=== PATIENT | male | born 1955 | race Caucasian/White ===

== ENCOUNTER 2019-10-23 09:43 | Day surgery (SDC) | payer MEDICARE, MEDICAID ==
[~2019-10-23] VITALS: Ht 170.2 cm; Wt 86.8 kg
[2019-10-23] VITALS (13 sets, daily range): BP systolic 128–155; BP diastolic 75–96
[~2019-10-23 09:43] MED LIST: APIX5TAB3 PO; ASPI-611 PO; ATOR20TA66 PO; ATOR40TA PO; ETHA25TA2 PO; NITR0.4T48 SL; SACU1TAB4 PO
[2019-10-23] MEDS ORDERED: diphenhydrAMINE 25mg capsule PO PRN (10:00)
[2019-10-23] MEDS ORDERED: normal saline 1,000 ML IV SCH ×2 (10:00→14:20)
[2019-10-23] MEDS ORDERED: nitroGLYCERIN 0.4mg SUBLingual tab SL PRN (10:00)
[2019-10-23] MEDS ORDERED: LORazepam 0.5 MG tablet PO PRN (10:00)
[2019-10-23 10:35] LABS: BASOPHILS # (AUTO) 0.1 X10'3 (0-0.2); EOSINOPHILS # (AUTO) 0.3 X10'3 (0-0.9); EOSINOPHILS % (AUTO) 4.6 % (0-6); HEMOGLOBIN 16.2 g/dl (14.0-17.9); LYMPHOCYTES # (AUTO) 1.7 X10'3 (1.1-4.8); LYMPHOCYTES % (AUTO) 26.1 % (21-51); MEAN CORPUSCULAR HEMOGLOBIN 30.1 PG (27.0-31.0); MEAN CORPUSCULAR HGB CONC 33.8 g/dL (33.0-36.5); MEAN CORPUSCULAR VOLUME 89.1 FL (78-98); MEAN PLATELET VOLUME 9.7 FL (7.4-10.4); MONOCYTES # (AUTO) 0.5 X10'3 (0-0.9); MONOCYTES % (AUTO) 7.1 % (2-12); NEUTROPHILS % (AUTO) 61.2 % (42-75); PLATELET COUNT 191 X10'3 (140-440); RED BLOOD COUNT 5.39 X10'6 (4.70-6.10); RED CELL DISTRIBUTION WIDTH 15.7 % (11.5-14.5); WHITE BLOOD COUNT 6.6 X10'3 (4.5-11.0)
[2019-10-23 10:43] LABS: ALBUMIN 4.2 G/DL (3.4-5.0); ANION GAP 9 (8-16); BLOOD UREA NITROGEN 30 MG/DL (7-18); BUN/CREATININE RATIO 22.1 (5.4-32.0); CALCIUM 9.1 MG/DL (8.5-10.1); CHLORIDE 107 MMOL/L (99-107); CREATININE 1.36 MG/DL (0.60-1.10); GLUCOSE 108 MG/DL (70-104); POTASSIUM 4.3 MMOL/L (3.5-5.1); SODIUM 142 MMOL/L (135-145); TOTAL CARBON DIOXIDE 26.5 MMOL/L (24-32); eGFR 53 ML/MIN
[2019-10-23 10:48] LABS: PARTIAL THROMBOPLASTIN TIME 28 SECONDS (22-32)
[2019-10-23] MEDS ORDERED: UBID100C16 PO (11:28)
[2019-10-23] MEDS ORDERED: SELE200C PO (11:28)
[2019-10-23] MEDS ORDERED: CHOL500049 PO (11:28)
[2019-10-23] MEDS ORDERED: CARV12.545 PO (11:28)
[2019-10-23] MEDS ORDERED: HYDR-4069 PO (11:28)
[2019-10-23] MEDS ORDERED: FLAX100031 PO (11:28)
[2019-10-23] MEDS ORDERED: ERGO400C (11:28)
[2019-10-23] MEDS ORDERED: ATOR20TA66 PO (11:28)
[2019-10-23] MEDS ORDERED: GARL1TAB2 (11:28)
[2019-10-23] MEDS ORDERED: VITA400C67 PO (11:30)
[2019-10-23] MEDS ORDERED: POTA10TA36 PO (11:30)
[2019-10-23] MEDS ORDERED: midazolam 2 mg/2 ml injection ONE ×2 (12:13→12:40)
[2019-10-23] MEDS ORDERED: fentaNYL/PF 50MCG/1 ML 2ML syringe ONE (12:13)
[2019-10-23] MEDS ORDERED: iohexol 350 MG/ML 50ML vial IV ONE (12:13)
[2019-10-23] MEDS ORDERED: LIDOcaine 1% (10mg/ml)w/preservative injection 20ml MDV ONE (12:13)
[2019-10-23] MEDS ORDERED: iohexol 350MG/ML 100ml bottle IV ONE (12:14)
[2019-10-23] MEDS ORDERED: ondansetron/PF 4mg/2ml inj IV PRN (14:25)
[2019-10-23] MEDS ORDERED: OXAZEpam 15mg capsule PO PRN (14:25)
[2019-10-23] MEDS ORDERED: sodium chloride 0.45% 1,000 ML IV SCH (14:25)
[2019-10-23] MEDS ORDERED: HYDROcodone/acetaminophen 10/325mg tab PO PRN (14:25)
[2019-10-23] MEDS ORDERED: HYDROcodone/acetaminophen 5mg/325mg tablet PO PRN (14:25)
[2019-10-23] MEDS ORDERED: proCHLORperazine 10 MG/2 ml inj IV PRN (14:25)
== END 2019-10-23 18:55 | disposition home or self-care (01) ==
LOC: MED 3N 09:43 → U 09:43
PROVIDERS: ATTEND Internal Medicine Cardiovascular Disease
DX: R94.39 Abnormal result of other cardiovascular function study (principal); I25.10 Atherosclerotic heart disease of native coronary artery without angina pectoris; I42.8 Other cardiomyopathies; I10 Essential (primary) hypertension; F41.1 Generalized anxiety disorder; E78.5 Hyperlipidemia, unspecified; Z87.891 Personal history of nicotine dependence; Z79.899 Other long term (current) drug therapy; Z79.82 Long term (current) use of aspirin; Z79.01 Long term (current) use of anticoagulants
CPT/HCPCS: 36415; 71046; 80048; 85025; 85610; 85730; 93005; 93458; 99152; 99153; C1769; J1644; J2001; J2250; J3010; J7030; Q0163; Q9967; A4620; A6258; C1760

== ENCOUNTER 2020-07-13 12:21 | Emergency (ER) | payer MEDICARE, MEDICAID ==
[~2020-07-13] VITALS: Ht 170.2 cm; Wt 79.0 kg
[~2020-07-13 12:21] MED LIST changes: -ATOR40TA PO; +CARV12.545 PO; +CHOL500049 PO; +ERGO400C; +FLAX100031 PO; +GARL1TAB2; +HYDR-4069 PO; +POTA10TA36 PO; +SELE200C PO; +UBID100C16 PO; +VITA400C67 PO
== END 2020-07-13 13:47 | disposition left against medical advice (07) ==
LOC: ER 12:21
DX: R05 Cough (principal); R50.9 Fever, unspecified; Z53.21 Procedure and treatment not carried out due to patient leaving prior to being seen by health care provider